=== PATIENT | female | born 1955 | race African-American/Black ===

== ENCOUNTER 2021-11-15 14:30 | Inpatient (IN) | payer MEDICAID ==
[~2021-11-15] VITALS: Ht 160 cm; Wt 79.8 kg
[2021-11-15 17:15] LABS: BASOPHILS % 0.4 % (0.0-2.0); EOSINOPHILS % 3.3 % (0.0-5.0); HEMATOCRIT. 39.6 % (36.0-48.0); HEMOGLOBIN. 13.3 g/dL (12.0-16.0); LYMPHOCYTES % 28.5 % (20.0-50.0); MEAN CORPUSCULAR HEMOGLOBIN 31.3 pg (28.0-32.0); MEAN CORPUSCULAR VOLUME 93.5 fL (81.0-99.0); MEAN PLATELET VOLUME 9.8 fl (7.4-10.4); MONOCYTES % 9.7 % (2.0-8.0); NEUTROPHILS % 58.1 % (40.0-76.0); PLATELET 205 x1000/uL (130-400); RED BLOOD CELL COUNT 4.24 mill/uL (4.2-5.4); RED CELL DISTRIBUTION WIDTH 13.2 % (11.6-14.6)
[2021-11-15 17:22] LABS: CHLORIDE 107 mEq/L (98-107); INR 1.1; PROTHROMBIN TIME 11.3 sec (9.6-11.0)
[2021-11-15] MEDS ORDERED: CEFTRIAXONE 1 G PREMIX 50 ML IV ONE (17:45)
[2021-11-16 04:00] VITALS: BP 103/73
[2021-11-16 04:38] VITALS: BP 103/73
[2021-11-16] MEDS ORDERED: ONDANSETRON HCL 4MG/2ML INJ IV PRN (08:45)
[2021-11-16] MEDS: PANTOPRAZOLE SODIUM 40 MG/VIAL IV SCH (09:16)
[2021-11-16] MEDS: DEXT 5%/0.45% NACL 1000ML 1,000 ML IV SCH ×2 (09:26→20:43)
[2021-11-16 12:00] VITALS: BP 142/85
[2021-11-16 16:00] VITALS: BP 122/64
[2021-11-16 20:00] VITALS: BP 116/46
[2021-11-17] VITALS (7 sets, daily range): BP systolic 108–128; BP diastolic 48–68
[2021-11-17] MEDS: PANTOPRAZOLE SODIUM 40 MG/VIAL IV SCH (10:23)
[2021-11-17] MEDS: DEXT 5%/0.45% NACL 1000ML 1,000 ML IV SCH (10:24)
[2021-11-17] MEDS ORDERED: BISACODYL 10MG SUPP PR NR ×2 (12:30→14:00)
[2021-11-17] MEDS ORDERED: DIATR MEGLU/DIATRIZOATE SOLN 30ML ONE (13:06)
[2021-11-17] MEDS ORDERED: SORBITOL 70% SOLN 30ML GT NR (14:00)
[2021-11-17 16:16] LABS: BASOPHILS % 0.2 % (0.0-2.0); EOSINOPHILS % 3.1 % (0.0-5.0); HEMATOCRIT. 38.1 % (36.0-48.0); HEMOGLOBIN. 12.7 g/dL (12.0-16.0); LYMPHOCYTES % 37.8 % (20.0-50.0); MEAN CORPUSCULAR HEMOGLOBIN 31.6 pg (28.0-32.0); MEAN CORPUSCULAR VOLUME 94.8 fL (81.0-99.0); MEAN PLATELET VOLUME 9.5 fl (7.4-10.4); MONOCYTES % 10.2 % (2.0-8.0); NEUTROPHILS % 48.7 % (40.0-76.0); PLATELET 212 x1000/uL (130-400); RED BLOOD CELL COUNT 4.02 mill/uL (4.2-5.4)
[2021-11-17 16:22] LABS: INR 1.1; PROTHROMBIN TIME 11.4 sec (9.6-11.0)
[2021-11-17 16:30] LABS: CHLORIDE 109 mEq/L (98-107)
[2021-11-18] MEDS ORDERED: DOCUSATE SODIUM SUGAR FREE 100MG/10ML UDC GT SCH (09:00)
== END 2021-11-17 17:25 | DRG 252 ==
LOC: ER 14:30 → MICUSO 19:49 → EDBEDREQ 19:57 → EDBEDREQTM 19:57 → 6EST 11-16 04:34
PROVIDERS: ADMIT Internal Medicine; ATTEND Internal Medicine
DX: K94.23 Gastrostomy malfunction (principal); E44.1 Mild protein-calorie malnutrition; F03.90 Unspecified dementia, unspecified severity, without behavioral disturbance, psychotic disturbance, mood disturbance, and anxiety; I50.9 Heart failure, unspecified; I11.0 Hypertensive heart disease with heart failure; R13.10 Dysphagia, unspecified; K21.9 Gastro-esophageal reflux disease without esophagitis; K56.41 Fecal impaction; I73.9 Peripheral vascular disease, unspecified; Z91.012 Allergy to eggs; Z91.013 Allergy to seafood; Y83.2 Surgical operation with anastomosis, bypass or graft as the cause of abnormal reaction of the patient, or of later complication, without mention of misadventure at the time of the procedure
CPT/HCPCS: 36415; 74018; 80048; 80053; 85025; 99285; C9113; J0696; Q9963